=== PATIENT | male | born 1930 | race Caucasian/White ===

== ENCOUNTER 2018-06-27 20:58 | Emergency (ER) | payer OTHER ==
[~2018-06-27] VITALS: Ht 195.6 cm; Wt 86.2 kg
[~2018-06-27 20:58] MED LIST: CEPH500 PO; Flomax0.4 MG PO; GLIP5 PO; Lopressor 25 mg25 MG PO; METF500 PO; Percocet 5-3251 EACH PO; WARF7.5 PO
[2018-06-27 21:48] LABS: Source, Urine Catheter
[2018-06-27 21:51] LABS: Bilirubin, Urine Neg (Neg); Blood, Urine 1+ (Neg); Glucose Qualitative, Urine 3+ (Neg); Ketones, Urine Neg (Neg); Leukocyte Esterase, Urine Neg (Neg); Nitrite, Urine Neg (Neg); Protein, Urine Neg (Neg); Urobilinogen, Urine NORM (Normal)
[2018-06-27 22:01] LABS: Appearance, Urine Clear (Clear); Bacteria Rare /hpf; Color, Urine Yellow (P-Yellow); Red Blood Cells, Urine 0-2 /hpf (0-2); Squamous Epithelial Cells Rare /hpf (Few); White Blood Cells, Urine 0-2 /hpf (0-5)
== END 2018-06-27 22:37 | disposition home or self-care (01) ==
LOC: ER 20:58
PROVIDERS: Emergency Medicine
DX: R33.9 Retention of urine, unspecified (principal); E11.9 Type 2 diabetes mellitus without complications; I48.91 Unspecified atrial fibrillation; Z88.8 Allergy status to other drugs, medicaments and biological substances; Z79.899 Other long term (current) drug therapy; Z79.84 Long term (current) use of oral hypoglycemic drugs
CPT/HCPCS: 51702; 51798; 81001; 99283

== ENCOUNTER 2018-07-02 13:10 | Emergency (ER) | payer OTHER ==
[~2018-07-02] VITALS: Ht 195.6 cm; Wt 88.5 kg
[2018-07-02] MEDS ORDERED: OMEG1CAP30 (13:25)
[2018-07-02] MEDS ORDERED: ELIQUIS PO (13:25)
[2018-07-02 15:05] LABS: Source, Urine Catheter
[2018-07-02 15:09] LABS: Bilirubin, Urine Neg (Neg); Blood, Urine 5+ (Neg); Glucose Qualitative, Urine 4+ (Neg); Ketones, Urine 1+ (Neg); Leukocyte Esterase, Urine 3+ (Neg); Nitrite, Urine Neg (Neg); Protein, Urine 1+ (Neg); Urobilinogen, Urine NORM (Normal)
[2018-07-02 15:38] LABS: Appearance, Urine Hazy (Clear); Color, Urine Yellow (P-Yellow)
[2018-07-02 15:39] LABS: White Blood Cells, Urine 50-100 /hpf (0-5)
[2018-07-02 15:40] LABS: Bacteria Many /hpf; Squamous Epithelial Cells Rare /hpf (Few)
[2018-07-02] MEDS ORDERED: Cipro500 MG PO (16:26)
== END 2018-07-02 16:37 | disposition home or self-care (01) ==
LOC: ER 13:10
PROVIDERS: Physician Assistant
DX: N40.1 Benign prostatic hyperplasia with lower urinary tract symptoms (principal); R33.8 Other retention of urine; N39.0 Urinary tract infection, site not specified; B96.89 Other specified bacterial agents as the cause of diseases classified elsewhere; E11.9 Type 2 diabetes mellitus without complications; I48.91 Unspecified atrial fibrillation; F17.220 Nicotine dependence, chewing tobacco, uncomplicated; Z79.899 Other long term (current) drug therapy; Z79.84 Long term (current) use of oral hypoglycemic drugs
CPT/HCPCS: 51702; 51798; 81001; 99283

== ENCOUNTER → 2018-10-23 | Outpatient (CLI) | payer OTHER ==
[~2018-10-23] MED LIST changes: +CLOP75 PO; +Cipro500 MG PO; +ELIQUIS PO; +Humalog100 UNIT/3 SC; +INSULANPEN SC; +LEVFLO500; +METO25ER PO; +NITR.4SL SL; +OMEG1CAP30; +TAMS.4ER PO; +TORSE20 PO
== END ==
LOC: LAB 19:40 → LAB SHORT 19:40
DX: E11.40 Type 2 diabetes mellitus with diabetic neuropathy, unspecified (principal)
CPT/HCPCS: 82043